=== PATIENT | female | born 1960 | race Caucasian/White ===

== ENCOUNTER 2018-12-31 10:54 | Emergency (ER) | payer SELFPAY ==
[~2018-12-31] VITALS: Ht 162.6 cm; Wt 75.3 kg
[2018-12-31 11:03] VITALS: BP 136/77; Ht 162.6 cm; Wt 75.3 kg
== END 2018-12-31 11:31 | disposition home or self-care (01) ==
LOC: ED 10:54
DX: H10.89 Other conjunctivitis (principal)